=== PATIENT | female | born 1955 | race Caucasian/White ===

== ENCOUNTER 2021-05-15 20:39 | Emergency (ER) | payer MEDICARE, BC ==
[~2021-05-15] VITALS: Ht 167.6 cm; Wt 79.8 kg
[2021-05-15] MEDS ORDERED: HYDROCHLOROTHIA25 MG PO (21:54)
[2021-05-15] MEDS ORDERED: TENORMIN50 MG PO (21:54)
[2021-05-15] MEDS ORDERED: HYDRALAZINE HCL 20 MG/ML VIAL ONE (21:57)
[2021-05-15] MEDS: HYDRALAZINE HCL 20 MG/ML VIAL IV ONE (22:16)
[2021-05-15] MEDS: CLONIDINE HCL 0.1 MG TAB PO ONE (22:17)
[2021-05-15 22:32] VITALS: BP 141/76
== END 2021-05-15 22:33 | disposition home or self-care (01) ==
LOC: FSED 21:40
DX: I16.0 Hypertensive urgency (principal); I10 Essential (primary) hypertension; R00.2 Palpitations; R07.9 Chest pain, unspecified; I49.3 Ventricular premature depolarization; R94.31 Abnormal electrocardiogram [ECG] [EKG]; R51.9 Headache, unspecified; R53.81 Other malaise; E78.5 Hyperlipidemia, unspecified; F41.9 Anxiety disorder, unspecified; Z79.899 Other long term (current) drug therapy
CPT/HCPCS: 71046; 93005; 99283; J0360